=== PATIENT | female | born 1985 | race African-American/Black ===

== ENCOUNTER 2022-03-27 16:04 | Emergency (ER) | payer MEDICAID ==
[~2022-03-27] VITALS: Ht 175.3 cm; Wt 127.0 kg
[~2022-03-27 16:04] MED LIST: IBUP-1636; METR500T; [UNRECOGNIZED DRUG - OTHER]
[2022-03-27 17:30] VITALS: BP 164/93
[2022-03-27] MEDS ORDERED: KETOROLAC 30MG/ML VIAL IM ONE (17:30)
[2022-03-27] MEDS ORDERED: NAPR-1176 MT (17:40)
== END 2022-03-27 19:12 | disposition home or self-care (01) ==
LOC: ER 16:04
DX: G89.29 Other chronic pain (principal); M25.561 Pain in right knee; I10 Essential (primary) hypertension; E66.9 Obesity, unspecified; Z68.41 Body mass index [BMI] 40.0-44.9, adult; Z91.041 Radiographic dye allergy status; Z91.013 Allergy to seafood; Z91.018 Allergy to other foods; Z90.49 Acquired absence of other specified parts of digestive tract
CPT/HCPCS: 81025; 96372; 99283; J1885